=== PATIENT | male | born 1940 | race Caucasian/White ===

== ENCOUNTER → 2017-01-30 | Outpatient (CLI) | payer MEDICARE ==
[2017-01-30 10:54] LABS: PATH.CAST-FLAG NOT PRESENT; SPERM-FLAG NOT PRESENT; SRC-FLAG NOT PRESENT; XTAL-FLAG NOT PRESENT; YLC-FLAG NOT PRESENT
== END | disposition home or self-care (01) ==
LOC: LAB 10:29
PROVIDERS: ATTEND Internal Medicine
DX: N39.0 Urinary tract infection, site not specified (principal)
CPT/HCPCS: 81001; 87077; 87086; 87186

== ENCOUNTER → 2018-04-22 | Outpatient (CLI) | payer MEDICARE, OTHER ==
[~2018-04-22] MED LIST: ACET-1600 PO; ACET650S21 PO; AZAT50TA9 PO; LISI-167 PO; LISI-170 PO; OMEP20TA62 PO; PRED10TA PO; PRED5TAB PO
[2018-04-22 10:00] LABS: ALBUMIN 3.4 g/dL (3.4-5.0); ANION GAP 8 mmol/L (5-15); CALCIUM 8.8 mg/dL (8.5-10.1); CHLORIDE 109 mmol/L (98-107)
[2018-04-22 10:04] LABS: ALANINE AMINOTRANSFERASE 22 U/L (12-78); ALKALINE PHOSPHATASE 49 U/L (45-117); BILIRUBIN,TOTAL 0.5 mg/dL (0.2-1.0); CREATININE 1.26 mg/dL (0.7-1.3); TOTAL PROTEIN 6.9 g/dL (6.4-8.2)
[2018-04-22 10:05] LABS: INTERNATIONAL NORMALIZED RATIO 1.04 (0.93-1.1); PROTHROMBIN TIME 10.7 Seconds (9.6-11.5)
[2018-04-22 10:49] LABS: MEAN CORPUSCULAR HGB CONC 33.3 g/dL (33.2-36.2); MEAN PLATELET VOLUME 11.1 fL (7.4-10.4); PLATELET COUNT 164 x10^3/uL (130-400); RED BLOOD COUNT 4.67 x10^6/uL (4.38-5.82)
[2018-04-22 11:47] LABS: MD YES
[2018-04-22 12:28] LABS: BAND#(MANUAL) 0.52 x10^3/uL; BANDS%(MANUAL) 6 % (0-7); LYMPH#(MANUAL) 1.22 x10^3/uL (1-3.4); LYMPHS% (MANUAL) 14 % (22-44); METAMYELOCYTES# (MANUAL) 0.17 x10^3/uL (0-0); METAMYELOCYTES% (MANUAL) 2 % (0-1); SEG#(MANUAL) 6.79 x10^3/uL (1.8-6.8); SEGS% (MANUAL) 78 % (42-75)
[2018-04-22 12:29] LABS: <PLATELET ESTIMATE> ADEQUATE; <RBC MORPHOLOGY> NORMAL; LARGE PLATELETS 1+
== END | disposition home or self-care (01) ==
LOC: STAR 08:25
PROVIDERS: ATTEND Neurological Surgery
DX: Z01.810 Encounter for preprocedural cardiovascular examination (principal); Z01.812 Encounter for preprocedural laboratory examination; Z01.811 Encounter for preprocedural respiratory examination; M48.062 Spinal stenosis, lumbar region with neurogenic claudication
CPT/HCPCS: 36415; 71046; 80053; 85025; 85610; 85730; 93005

== ENCOUNTER 2018-05-06 07:57 | Inpatient (IN) | payer MEDICARE, OTHER ==
[~2018-05-06] VITALS: Ht 170.2 cm; Wt 88.6 kg
[~2018-05-06 07:57] MED LIST changes: +BACITRACIN 50,000 UNIT ONE; +EPINEPHRINE 1 MG/ML, 1ML ONE; +THROMBIN 5,000 UNIT VIAL TP ONE
[2018-05-06] MEDS ORDERED: LACTATED RINGERS 1,000 ML IV SCH (08:23)
[2018-05-06 08:57] VITALS: BP 152/87
[2018-05-06] MEDS ORDERED: FENTANYL PF 250 MCG/5ML ONE (10:05)
[2018-05-06] MEDS ORDERED: PROPOFOL 10 MG/ML, 20ML ONE (10:55)
[2018-05-06] MEDS ORDERED: SUCCINYLCHOLINE 20 MG/ML, 10ML ONE (10:55)
[2018-05-06] MEDS ORDERED: ONDANSETRON 2MG/ML, 2ML ONE (10:55)
[2018-05-06] MEDS ORDERED: DEXAMETHASONE 4 MG/ML, 1ML ONE (10:55)
[2018-05-06] MEDS ORDERED: CEFAZOLIN 1,000 MG ONE (10:55)
[2018-05-06] MEDS ORDERED: BUPIVACAINE/PF 0.5% INFIL ONE (11:22)
[2018-05-06] MEDS ORDERED: ONDANSETRON 2MG/ML, 2ML IV PRN ×2 (12:00→15:00)
[2018-05-06] MEDS ORDERED: LABETALOL 5MG/ML, 20ML IV PRN ×3 (12:00→17:00)
[2018-05-06] MEDS ORDERED: FENTANYL PF 100 MCG/2ML IV PRN (12:00)
[2018-05-06] MEDS ORDERED: hydrALAzine 20 MG/ML, 1ML IV PRN (12:00)
[2018-05-06] MEDS ORDERED: DIAZEPAM 5 MG/ML, 2ML IVPush PRN (12:00)
[2018-05-06] MEDS ORDERED: ACETAMINOPHEN 325 MG TABLET PO PRN (12:00)
[2018-05-06] MEDS ORDERED: OXYcodone 5 MG/5 ML ORAL.SOL UDC PO PRN (12:00)
[2018-05-06] MEDS ORDERED: HYDROmorphone 1 MG/ML, 1ML IV PRN (12:00)
[2018-05-06] MEDS ORDERED: FENTANYL PF 100 MCG/2ML ONE (13:20)
[2018-05-06] MEDS ORDERED: OXYcodone 5 MG/5 ML ORAL.SOL UDC ONE (13:32)
[2018-05-06] MEDS ORDERED: ACETAMINOPHEN 650 MG/20.3 ML UDC ONE (13:33)
[2018-05-06] MEDS ORDERED: MEPERIDINE/PF 50 MG/ML ONE (13:53)
[2018-05-06] MEDS ORDERED: MEPERIDINE/PF 25MG/0.5ML IVPush PRN (14:00)
[2018-05-06] MEDS ORDERED: MAGNESIUM HYDROXIDE 8%, 30ML UDC PO PRN (15:00)
[2018-05-06] MEDS ORDERED: HYDROmorphone 2 MG/ML, 1ML IM PRN ×2 (15:00→17:00)
[2018-05-06] MEDS ORDERED: HYDROmorphone 2MG TABLET PO PRN ×2 (15:00→17:00)
[2018-05-06] MEDS ORDERED: BISACODYL 10 MG SUPP PR PRN (15:00)
[2018-05-06] MEDS ORDERED: METHOCARBAMOL 750 MG TABLET PO PRN (15:00)
[2018-05-06] MEDS ORDERED: OXYcodone/APAP 5/325MG TABLET PO PRN ×2 (15:00→19:00)
[2018-05-06] MEDS ORDERED: OMEPRAZOLE 20 MG CAPSULE.DR PO PRN (15:00)
[2018-05-06] MEDS ORDERED: PROMETHAZINE 25 MG/ML, 1ML IM PRN (15:00)
[2018-05-06] MEDS ORDERED: HYDROcodone/APAP 5/325 TABLET PO PRN ×2 (15:00→19:00)
[2018-05-06] MEDS ORDERED: CYCLOBENZAPRINE 10 MG TABLET PO PRN (15:00)
[2018-05-06] MEDS ORDERED: DIPHENHYDRAMINE 50 MG/ML, 1ML IVPush PRN (17:00)
[2018-05-06] MEDS: NS + 20MEQ KCL 1,000 ML IV SCH (17:48)
[2018-05-06] MEDS: CEFAZOLIN PMX 1GM/50ML 50 ML IVPB SCH (17:48)
[2018-05-06 20:17] VITALS: BP 119/78
[2018-05-06] MEDS ORDERED: SENNA/DOCUSATE TABLET ONE (21:22)
[2018-05-06] MEDS: SENNA/DOCUSATE TABLET PO SCH (21:24)
[2018-05-06 23:55] VITALS: BP 105/59
[2018-05-07] MEDS: CEFAZOLIN PMX 1GM/50ML 50 ML IVPB SCH (03:00)
[2018-05-07 03:20] VITALS: BP 115/66
[2018-05-07] MEDS: NS + 20MEQ KCL 1,000 ML IV SCH (04:20)
[2018-05-07 06:27] LABS: MEAN CORPUSCULAR HEMOGLOBIN 30.7 pg (27.5-34.5); MEAN CORPUSCULAR HGB CONC 33.8 g/dL (33.2-36.2); MEAN CORPUSCULAR VOLUME 90.9 fL (81-97); MEAN PLATELET VOLUME 10.6 fL (7.4-10.4); PLATELET COUNT 126 x10^3/uL (130-400); RED BLOOD COUNT 3.74 x10^6/uL (4.38-5.82); RED CELL DISTRIBUTION WIDTH 15.4 % (9.4-14.8)
[2018-05-07 06:38] LABS: ALBUMIN 2.7 g/dL (3.4-5.0); ANION GAP 6 mmol/L (5-15); CALCIUM 7.6 mg/dL (8.5-10.1); CHLORIDE 109 mmol/L (98-107); CREATININE 1.21 mg/dL (0.7-1.3)
[2018-05-07 06:58] LABS: BASOPHILS % (AUTO) 1 % (0-1); EOSINOPHILS # (AUTO) 0.05 x10^3/uL (0-0.4); EOSINOPHILS % (AUTO) 0 % (1-7); LYMPHOCYTES # (AUTO) 1.48 x10^3/uL (1-3.4); LYMPHOCYTES % (AUTO) 9 % (22-44); MD SCAN; MONOCYTES # (AUTO) 0.22 x10^3/uL (0.2-0.8); MONOCYTES % (AUTO) 1 % (2-9); NEUTROPHILS # (AUTO) 14.85 x10^3/uL (1.8-6.8); NEUTROPHILS % (AUTO) 88 % (42-75)
[2018-05-07 07:55] VITALS: BP 103/60
[2018-05-07] MEDS: SENNA/DOCUSATE TABLET PO SCH (08:19)
[2018-05-07] MEDS ORDERED: HYDR-3240 PO ×2 (08:31→11:44)
[2018-05-07] MEDS ORDERED: LISINOPRIL 10 MG TABLET PO SCH (09:00)
== END 2018-05-07 11:43 | disposition home or self-care (01) | DRG 518 ==
LOC: OUT 07:57 → 4NOR 14:27 → OUT 14:56 → DCLOUNGE 05-07 11:43
PROVIDERS: ADMIT Neurological Surgery; ATTEND Neurological Surgery
PROC: 0SB20ZZ Excision of Lumbar Vertebral Disc, Open Approach (ICD-10-PCS; 2018-05-06)
PROC: 01NB0ZZ Release Lumbar Nerve, Open Approach (ICD-10-PCS; principal; 2018-05-06 11:00)
DX: M48.061 Spinal stenosis, lumbar region without neurogenic claudication (principal); E43 Unspecified severe protein-calorie malnutrition; M51.26 Other intervertebral disc displacement, lumbar region; I10 Essential (primary) hypertension; Z87.891 Personal history of nicotine dependence
CPT/HCPCS: 36415; 72100; 80048; 82040; 85025; J0171; J0690; J1100; J2175; J2270; J2405; J2704; J3010; J3480; J3490; J0330; J7120; J7512